=== PATIENT | male | born 1940 | race Hispanic/Latino ===

== ENCOUNTER → 2019-03-10 | Outpatient (CLI) | payer OTHER ==
[2019-03-10 13:26] LABS: CREATININE 1.2 mg/dL (0.5-1.5)
== END | disposition home or self-care (01) ==
LOC: LAB 12:50
PROVIDERS: ATTEND Otolaryngology Plastic Surgery within the Head & Neck
DX: H90.3 Sensorineural hearing loss, bilateral (principal)
CPT/HCPCS: 36415; 82565; 84520

== ENCOUNTER → 2019-03-11 | Outpatient (CLI) | payer OTHER ==
[~2019-03-11] MED LIST: GADODIAMIDE 10 MMOL/20 ML VIAL IV ONE
== END | disposition home or self-care (01) ==
LOC: RAH 12:51
PROVIDERS: ATTEND Otolaryngology Plastic Surgery within the Head & Neck
DX: G31.89 Other specified degenerative diseases of nervous system (principal); H90.3 Sensorineural hearing loss, bilateral
CPT/HCPCS: 70553 ×2; A9579

== ENCOUNTER 2020-12-04 19:43 | Inpatient (IN) | payer OTHER ==
[~2020-12-04] VITALS: Ht 182.9 cm; Wt 118.0 kg
[2020-12-04] MEDS ORDERED: FENTANYL 2500MCG+NS 250ML 250 ML IV ONE (20:01)
[2020-12-04 20:09] LABS: ABG BASE EXCESS -12.4 mmol/L (-2.0-3.0); ABG HCO3 17.3 mmol/L (21.0-28.0); ABG OXYGEN SATURATION 87.3 % (95.0-99.0); ABG PCO2 54 mmHg (35-48)
[2020-12-04 20:35] LABS: BASOPHILS % (AUTO) 0.3 % (0.0-5.0); HEMATOCRIT 43.5 % (42-54); MEAN CORPUSCULAR HEMOGLOBIN 33.3 pg (27.0-33.0); MEAN CORPUSCULAR HGB CONC 33.1 g/dL (32.0-36.0); MEAN CORPUSCULAR VOLUME 100.7 fL (79-99); MONOCYTES % (AUTO) 5.2 % (3.0-13.0); PLATELET COUNT (AUTO) 195 K/uL (130-400); RED BLOOD CELL COUNT(AUTO) 4.32 MIL/uL (4.50-6.20); RED CELL DISTRIBUTION WIDTH 14.5 % (11.0-15.5)
[2020-12-04] MEDS ORDERED: ZOSYN 3.375GM+NS 50ML 50 ML IV ONE (20:37)
[2020-12-04] MEDS ORDERED: INSULIN HUMULIN R 100 UNIT/ML 3ML ONE (20:37)
[2020-12-04 20:49] LABS: INR 1.12 (0.85-1.15); PROTHROMBIN TIME 12.1 SEC (9.6-11.6)
[2020-12-04 20:51] LABS: PARTIAL THROMBOPLASTIN TIME 33.9 SEC (26.3-35.5)
[2020-12-04 20:53] LABS: APPEARANCE,URINE Cloudy (CLEAR); BILIRUBIN,URINE Negative (NEGATIVE); COLOR,URINE Dark Yellow (YELLOW); GLUCOSE, URINE (UA) 250 mg/dL (NEGATIVE); KETONES,URINE Negative (NEGATIVE); LEUKOCYTE ESTERASE ,URINE Small (NEGATIVE); NITRATE,URINE Negative (NEGATIVE); OCCULT BLOOD,URINE Moderate (NEGATIVE); PH,URINE 6.5 (5.0-8.0); PROTEIN,URINE >=1000 mg/dL (NEGATIVE)
[2020-12-04 20:58] LABS: ABG BASE EXCESS -8.5 mmol/L (-2.0-3.0); ABG HCO3 20.6 mmol/L (21.0-28.0); ABG OXYGEN SATURATION 92.7 % (95.0-99.0); ABG PCO2 57 mmHg (35-48)
[2020-12-04 21:16] LABS: ALBUMIN 3.1 g/dL (3.5-5.0); BILIRUBIN,TOTAL 0.7 mg/dL (0.2-1.0); CREATININE 2.2 mg/dL (0.5-1.5); POTASSIUM 4.1 mmol/L (3.5-5.1); TOTAL PROTEIN, SERUM 8.4 g/dL (6.0-8.3); TROPONIN I 0.05 ng/mL (0.00-0.06)
[2020-12-04 21:34] LABS: BACTERIA,URINE Few /HPF (None Seen); MUCUS,URINE Few LPF (None Seen); SQUAMOUS EPITHELIAL CELL,UR Moderate /HPF (0-2)
[2020-12-04] MEDS ORDERED: DEXTROSE 50%-WATER 50 ML DISP.SYRIN IV PRN (21:45)
[2020-12-04] MEDS ORDERED: GLUCAGON 1MG KIT 1 MG ML IM PRN (21:45)
[2020-12-04] MEDS ORDERED: DEXAMETHASONE SOD PHOSPHATE 4 MG/ML 1ML VIAL IVP SCH (21:45)
[2020-12-04] MEDS ORDERED: ACETAMINOPHEN 650 MG SUPPOSITORY RC ONE (21:59)
[2020-12-04] MEDS ORDERED: NOREPINEPHRIN 4MG/NS 250ML 250 ML IV ONE (21:59)
[2020-12-04] MEDS: AZITHROMYCIN 500MG+NS 250ML 250 ML IV SCH (22:00)
[2020-12-04] MEDS ORDERED: LINEZOLID 600 MG/ISO-OSM 300 ML IV SCH (22:00)
[2020-12-04 22:09] LABS: HEMOGLOBIN A1C 8.5 % (4.0-6.0)
[2020-12-04 22:10] LABS: MAGNESIUM 1.9 mg/dL (1.80-2.40)
[2020-12-04] MEDS ORDERED: NITROGLYCERIN 0.4 MG SL TAB SL PRN (22:15)
[2020-12-04] MEDS ORDERED: ONDANSETRON 4MG INJ IV PRN (22:15)
[2020-12-04] MEDS ORDERED: 0.9%NACL 1000ML 1,000 ML IV SCH (22:15)
[2020-12-04] MEDS ORDERED: 0.9%NACL 1000ML 3,000 ML IV SCH (22:15)
[2020-12-04] MEDS: INSULIN HUMULIN R 100 UNIT/ML 3ML IV SCH (22:15)
[2020-12-04] MEDS ORDERED: POTASSIUM CHLORIDE 10MEQ/100ML 100 ML IV PRN (22:15)
[2020-12-04] MEDS ORDERED: DEXTROSE 5 %-0.45 % NACL 1,000 ML IV PRN (22:15)
[2020-12-04] MEDS ORDERED: ENOXAPARIN SODIUM 1 MG/KG SQ SCH (22:30)
[2020-12-04] MEDS ORDERED: SODIUM BICARB 50MEQ 50ML VIAL IV STA (22:36)
[2020-12-04] MEDS: SODIUM BICARB 8.4% 50ML SYRINGE IVP SCH (22:45)
[2020-12-04] MEDS ORDERED: PHENYLEPHRINE HCL 10 MG in 0.9% NACL 250ML 250 ML IV PRN (23:00)
[2020-12-04] MEDS ORDERED: ASPIRIN 300 MG SUPPOSITORY PR SCH (23:15)
[2020-12-04] MEDS ORDERED: DEXAMETHASONE SOD PHOSPHATE 4 MG/ML 1ML VIAL ONE (23:28)
[2020-12-04] MEDS ORDERED: SODIUM BICARB 50MEQ 50ML VIAL 100 ML ONE (23:29)
[2020-12-04] MEDS ORDERED: PHENYLEPHRINE HCL 10 MG/ML 1ML VIAL IV ONE (23:29)
[2020-12-04] MEDS ORDERED: 0.9% NACL 250ML 250 ML IV ONE (23:30)
[2020-12-05] VITALS (51 sets, daily range): BP systolic 77–137; BP diastolic 41–92
[2020-12-05] MEDS ORDERED: INSULIN HUMULIN R 100 UNIT/ML 3ML SQ SCH
[2020-12-05 01:09] LABS: TROPONIN I 4.29 ng/mL (0.00-0.06)
[2020-12-05] MEDS ORDERED: PHENYLEPHRINE HCL 10 MG/ML 1ML VIAL IV ONE ×7 (01:45→10:03)
[2020-12-05] MEDS ORDERED: ALBUTEROL INHALER 90MCG/INH IH SCH ×2 (01:45→10:00)
[2020-12-05] MEDS ORDERED: 0.9% NACL 250ML 250 ML IV ONE ×2 (01:46→03:23)
[2020-12-05] MEDS ORDERED: INSULIN HUMULIN R 100 UNIT/ML 3ML ONE ×3 (02:18→09:35)
[2020-12-05] MEDS ORDERED: 0.9%NACL 100ML 100 ML IV ONE ×2 (02:19→08:02)
[2020-12-05] MEDS ORDERED: AZITHROMYCIN 500MG+NS 250ML 250 ML IV ONE (02:28)
[2020-12-05] MEDS ORDERED: POTASSIUM CHLORIDE 20MEQ/100ML 100 ML IV ONE (03:37)
[2020-12-05] MEDS ORDERED: ASPIRIN 300 MG SUPPOSITORY PR ONE (03:50)
[2020-12-05] MEDS: ZOSYN 3.375GM+NS 50ML 50 ML IV SCH ×3 (04:00→22:16)
[2020-12-05 05:27] LABS: BASOPHILS % (AUTO) 0.2 % (0.0-5.0); EOSINOPHILS % (AUTO) 0.1 % (0.0-8.0); HEMATOCRIT 39.9 % (42-54); LYMPHOCYTES % (AUTO) 14.4 % (21.0-51.0); MEAN CORPUSCULAR HGB CONC 31.8 g/dL (32.0-36.0); MEAN CORPUSCULAR VOLUME 103.6 fL (79-99); MONOCYTES % (AUTO) 3.1 % (3.0-13.0); NEUTROPHILS % (AUTO) 79.8 % (40.0-77.0); PLATELET COUNT (AUTO) 199 K/uL (130-400); RED BLOOD CELL COUNT(AUTO) 3.85 MIL/uL (4.50-6.20); RED CELL DISTRIBUTION WIDTH 14.6 % (11.0-15.5)
[2020-12-05] MEDS ORDERED: VASOPRESSIN 20 UNITS/ML 1ML VIAL ONE (05:30)
[2020-12-05 05:55] LABS: BILIRUBIN,TOTAL 0.6 mg/dL (0.2-1.0); CREATININE 1.9 mg/dL (0.5-1.5); POTASSIUM 4.8 mmol/L (3.5-5.1); TOTAL PROTEIN, SERUM 5.6 g/dL (6.0-8.3)
[2020-12-05] MEDS: CACL 1GM SYG IVP SCH ×2 (06:00→21:24)
[2020-12-05 06:12] LABS: CRP QUANTITATIVE 324.8 mg/L (0.00-9.0)
[2020-12-05 06:25] LABS: TROPONIN I 4.63 ng/mL (0.00-0.06)
[2020-12-05 06:30] LABS: ABG BASE EXCESS -7.7 mmol/L (-2.0-3.0); ABG HCO3 19.3 mmol/L (21.0-28.0); ABG PCO2 45 mmHg (35-48)
[2020-12-05] MEDS: LINEZOLID 600 MG/ISO-OSM 300 ML IV SCH ×2 (08:00→22:16)
[2020-12-05] MEDS ORDERED: PHARMACY COMMUNICATION**REMDESIVIR MISC SCH (08:15)
[2020-12-05] MEDS ORDERED: REMDESIVIR (EUA) 520 200 MG in 0.9% NACL 250ML 250 ML IV SCH (08:45)
[2020-12-05] MEDS ORDERED: COMPOUND IV REFRIGERATED 1 EACH IVSOLN MISC PRN (08:45)
[2020-12-05] MEDS ORDERED: CALCIUM GLUC 1GM 1 GM in 0.9%NACL 100ML 100 ML IV SCH (08:45)
[2020-12-05] MEDS ORDERED: CALCIUM GLUC 1GM/10ML VIAL IV SCH (08:45)
[2020-12-05] MEDS ORDERED: INSULIN GLARGINE 100 UNITS/ML 10 ML VIAL SQ SCH (08:45)
[2020-12-05] MEDS ORDERED: MAGNESIUM 2GM PREMIX 50ML 50 ML IV SCH (08:45)
[2020-12-05] MEDS ORDERED: ENOXAPARIN SODIUM 100 MG/1 ML SQ SCH (09:00)
[2020-12-05] MEDS: FAMOTIDINE 20MG VIAL IV SCH ×2 (09:00→22:16)
[2020-12-05] MEDS ORDERED: ENOXAPARIN SODIUM 40 MG/0.4 ML SYRINGE SQ SCH (09:00)
[2020-12-05 09:13] LABS: ABG BASE EXCESS -9.6 mmol/L (-2.0-3.0); ABG HCO3 15.5 mmol/L (21.0-28.0); ABG OXYGEN SATURATION 95.4 % (95.0-99.0); ABG PCO2 32 mmHg (35-48)
[2020-12-05] MEDS ORDERED: FUROSEMIDE 20MG VIAL ONE (09:33)
[2020-12-05] MEDS ORDERED: ENOXAPARIN SODIUM 100 MG/1 ML SQ ONE (09:33)
[2020-12-05] MEDS ORDERED: MAGNESIUM 2GM PREMIX 50ML 50 ML IV ONE (09:33)
[2020-12-05] MEDS ORDERED: ZOSYN 3.375GM+NS 50ML 50 ML IV ONE (09:33)
[2020-12-05] MEDS ORDERED: FAMOTIDINE 20MG VIAL IV ONE (09:34)
[2020-12-05] MEDS ORDERED: FENTANYL 2500MCG+NS 250ML 250 ML IV ONE (09:38)
[2020-12-05] MEDS ORDERED: NOREPINEPHRIN 4MG/NS 250ML 250 ML IV SCH (10:53)
[2020-12-05] MEDS: INSULIN HUMULIN R 100 UNIT/ML 3ML SQ SCH ×3 (11:30→22:19)
[2020-12-05] MEDS: ARTIFICAL TEARS SOL 15 ML OU SCH ×3 (12:00→20:00)
[2020-12-05 12:24] LABS: TROPONIN I 2.32 ng/mL (0.00-0.06)
[2020-12-05] MEDS ORDERED: VASOPRESSIN 20 UNITS/NS 100ML IV SCH ×2 (13:00)
[2020-12-05] MEDS ORDERED: [UNRECOGNIZED DRUG - OTHER] IV ONE (13:04)
[2020-12-05] MEDS ORDERED: ALBUTEROL INHALER 90MCG/INH IH ONE (14:18)
[2020-12-05] MEDS ORDERED: THIAMINE HCL 100 MG/ML 2ML VIAL IV SCH (14:56)
[2020-12-05] MEDS ORDERED: PHARMACY COMMUNICATION MISC SCH ×3 (17:45→19:15)
[2020-12-05] MEDS ORDERED: NOREPINEPHRIN 8MG/250ML NS PMX 250 ML IV SCH (18:00)
[2020-12-05 18:30] LABS: TROPONIN I 8.96 ng/mL (0.00-0.06)
[2020-12-05] MEDS ORDERED: ASPIRIN 81MG CHEW TAB NG SCH (19:15)
[2020-12-05] MEDS ORDERED: HYDROCORTISONE SOD SUCCINATE 100 MG/2 ML VIAL IV SCH (21:00)
[2020-12-05] MEDS: INSULIN HUMULIN R 100 UNIT/ML 3ML IV SCH (21:02)
[2020-12-05] MEDS: SODIUM BICARB 8.4% 50ML SYRINGE IVP SCH (21:05)
[2020-12-05 21:44] LABS: TROPONIN I 13.81 ng/mL (0.00-0.06)
[2020-12-05] MEDS: AZITHROMYCIN 500MG+NS 250ML 250 ML IV SCH (22:17)
[2020-12-05] MEDS: DEXAMETHASONE SOD PHOSPHATE 4 MG/ML 1ML VIAL IVP SCH (22:23)
[2020-12-05 22:58] LABS: INR 1.53 (0.85-1.15)
[2020-12-05 22:59] LABS: PARTIAL THROMBOPLASTIN TIME 37.3 SEC (26.3-35.5)
[2020-12-05] MEDS: HEPARIN 25,000 UNITS/250ML D5W 250 ML IV PRN (23:08)
[2020-12-06] VITALS (97 sets, daily range): BP systolic 69–143; BP diastolic 44–93
[2020-12-06] MEDS ORDERED: NOREPINEPHRIN 8MG/250ML NS PMX 250 ML IV ONE (00:01)
[2020-12-06] MEDS: ARTIFICAL TEARS SOL 15 ML OU SCH ×6 (00:18→20:59)
[2020-12-06] MEDS ORDERED: PHENYLEPHRINE HCL 10 MG/ML 1ML VIAL IV ONE ×4 (01:33→05:11)
[2020-12-06] MEDS ORDERED: 0.9% NACL 250ML 250 ML IV ONE ×3 (01:35→05:12)
[2020-12-06] MEDS: ZOSYN 3.375GM+NS 50ML 50 ML IV SCH (04:58)
[2020-12-06] MEDS: REMDESIVIR LABS MISC SCH ×2 (07:36→19:55)
[2020-12-06] MEDS: INSULIN HUMULIN R 100 UNIT/ML 3ML SQ SCH ×4 (07:38→21:37)
[2020-12-06 07:41] LABS: BASOPHILS % (AUTO) 0.4 % (0.0-5.0); HEMATOCRIT 48.6 % (42-54); LYMPHOCYTES % (AUTO) 5.2 % (21.0-51.0); MEAN CORPUSCULAR HEMOGLOBIN 33.2 pg (27.0-33.0); MEAN CORPUSCULAR HGB CONC 31.9 g/dL (32.0-36.0); MEAN CORPUSCULAR VOLUME 104.1 fL (79-99); MONOCYTES % (AUTO) 3.7 % (3.0-13.0); NEUTROPHILS % (AUTO) 86.2 % (40.0-77.0); NUCLEATED RED BLOOD CELLS 0.4 % (0.0-0.19); PLATELET COUNT (AUTO) 271 K/uL (130-400); RED BLOOD CELL COUNT(AUTO) 4.67 MIL/uL (4.50-6.20); RED CELL DISTRIBUTION WIDTH 15.5 % (11.0-15.5); WHITE BLOOD COUNT (AUTO) 18.9 K/uL (4.8-10.8)
[2020-12-06 07:52] LABS: ABG BASE EXCESS -16.5 mmol/L (-2.0-3.0); ABG HCO3 12.5 mmol/L (21.0-28.0); ABG PCO2 40 mmHg (35-48)
[2020-12-06 08:10] LABS: B-TYPE NATRIURETIC PEPTIDE 4580 pg/mL (0-100)
[2020-12-06 08:36] LABS: ALBUMIN 2.3 g/dL (3.5-5.0); BILIRUBIN,TOTAL 1.4 mg/dL (0.2-1.0); CREATININE 3.6 mg/dL (0.5-1.5); MAGNESIUM 2.3 mg/dL (1.80-2.40); TOTAL PROTEIN, SERUM 6.7 g/dL (6.0-8.3)
[2020-12-06] MEDS ORDERED: ASPIRIN 81MG CHEW TAB NG SCH (09:00)
[2020-12-06] MEDS ORDERED: DEXMEDETOMIDINE HCL 400 MCG in 0.9%NACL 100ML 100 ML IV SCH (09:15)
[2020-12-06] MEDS ORDERED: PHARMACY COMMUNICATION MISC STA ×2 (09:16→11:14)
[2020-12-06] MEDS ORDERED: INSULIN GLARGINE 100 UNITS/ML 10 ML VIAL SQ SCH (09:30)
[2020-12-06] MEDS: DEXAMETHASONE SOD PHOSPHATE 4 MG/ML 1ML VIAL IVP SCH ×2 (10:17→21:35)
[2020-12-06] MEDS: SODIUM BICARB 50MEQ 50ML VIAL 150 MEQ in DEXTROSE 5%-WATER 1,000 ML IV SCH ×2 (10:28→22:59)
[2020-12-06] MEDS ORDERED: FENTANYL CITRATE PF 0.05 MG/ML 1,000 MCG in 0.9%NACL 100ML 100 ML IVPB STA (10:59)
[2020-12-06] MEDS ORDERED: PROPOFOL 1000 MG/100 ML IV STA (11:01)
[2020-12-06] MEDS ORDERED: RENAL DOSE IV SCH (11:15)
[2020-12-06] MEDS ORDERED: PROPOFOL 1000 MG/100 ML 100 ML IV PRN (11:15)
[2020-12-06] MEDS ORDERED: PHARMACY COMMUNICATION MISC SCH ×4 (11:15→21:15)
[2020-12-06] MEDS ORDERED: CISATRACURIUM BESYLATE IV SCH (12:00)
[2020-12-06] MEDS ORDERED: NACL 0.9% IV SCH (12:00)
[2020-12-06] MEDS ORDERED: CISATRACURIUM BESYLATE 2 MG/ML 10ML VIAL IVP SCH (12:00)
[2020-12-06] MEDS: CEFEPIME HCL 2 GM VIAL IVP SCH ×2 (12:24→22:38)
[2020-12-06] MEDS: VECURONIUM 10MG/10ML IV SCH ×2 (12:24→18:42)
[2020-12-06] MEDS: LANSOPRAZOLE 15 MG SOLU TAB PEG SCH (12:35)
[2020-12-06] MEDS: LACTULOSE 20 GM/30 ML UDCUP GT SCH ×2 (12:35→21:00)
[2020-12-06] MEDS: BUMETANIDE 0.25MG/ML 40ML IV SCH (12:43)
[2020-12-06] MEDS ORDERED: REMDESIVIR (EUA) 520 100 MG in 0.9% NACL 250ML 250 ML IV SCH (13:00)
[2020-12-06] MEDS: FENTANYL 2500MCG+NS 250ML 250 ML IV SCH (13:08)
[2020-12-06 13:27] LABS: ABG HCO3 13.3 mmol/L (21.0-28.0); ABG OXYGEN SATURATION 93.3 % (95.0-99.0); ABG PCO2 40 mmHg (35-48)
[2020-12-06] MEDS: HEPARIN 25,000 UNITS/250ML D5W 250 ML IV PRN (14:25)
[2020-12-06] MEDS ORDERED: NOREPINEPHRIN 4MG/NS 250ML 250 ML IV ONE (16:29)
[2020-12-06] MEDS: NOREPINEPHRIN 4MG/NS 250ML 250 ML IV SCH (16:34)
[2020-12-06] MEDS: VASOPRESSIN 20 UNITS in 0.9%NACL 100ML 100 ML IV SCH (17:22)
[2020-12-06] MEDS ORDERED: CALCIUM GLUC 1GM/10ML VIAL IV SCH (17:45)
[2020-12-06] MEDS ORDERED: KAYEXALATE 15GM/60ML PO SCH (17:45)
[2020-12-06] MEDS ORDERED: INSULIN HUMULIN R 100 UNIT/ML 3ML SQ SCH (17:45)
[2020-12-06] MEDS: DEXTROSE 50%-WATER 50 ML DISP.SYRIN IV SCH (18:40)
[2020-12-06] MEDS: CACL 1GM SYG IVP SCH (19:55)
[2020-12-06] MEDS: INSULIN HUMULIN R 100 UNIT/ML 3ML IV SCH (19:55)
[2020-12-06] MEDS ORDERED: ENOXAPARIN SODIUM 60 MG/0.6 ML SQ SCH (21:00)
[2020-12-06] MEDS: INSULIN GLARGINE 100 UNITS/ML 10 ML VIAL SQ SCH (21:42)
[2020-12-07] VITALS (107 sets, daily range): BP systolic 71–155; BP diastolic 39–62
[2020-12-07] MEDS: VECURONIUM 10MG/10ML IV SCH ×2 (00:29→05:17)
[2020-12-07] MEDS: ARTIFICAL TEARS SOL 15 ML OU SCH ×7 (00:29→23:04)
[2020-12-07] MEDS: LACTULOSE 20 GM/30 ML UDCUP GT SCH ×3 (04:53→20:21)
[2020-12-07] MEDS: HEPARIN 25,000 UNITS/250ML D5W 250 ML IV PRN (04:55)
[2020-12-07] MEDS: FENTANYL 2500MCG+NS 250ML 250 ML IV SCH ×2 (05:18→23:02)
[2020-12-07 06:42] LABS: ABG BASE EXCESS -9.9 mmol/L (-2.0-3.0); ABG HCO3 16.3 mmol/L (21.0-28.0); ABG PCO2 37 mmHg (35-48)
[2020-12-07 06:51] LABS: BASOPHILS % (AUTO) 0.2 % (0.0-5.0); HEMATOCRIT 43.6 % (42-54); MEAN CORPUSCULAR HEMOGLOBIN 32.9 pg (27.0-33.0); MEAN CORPUSCULAR HGB CONC 32.6 g/dL (32.0-36.0); MEAN CORPUSCULAR VOLUME 101.2 fL (79-99); MONOCYTES % (AUTO) 2.1 % (3.0-13.0); NEUTROPHILS % (AUTO) 83.3 % (40.0-77.0); NUCLEATED RED BLOOD CELLS 0.7 % (0.0-0.19); PLATELET COUNT (AUTO) 160 K/uL (130-400); RED BLOOD CELL COUNT(AUTO) 4.31 MIL/uL (4.50-6.20); RED CELL DISTRIBUTION WIDTH 15.4 % (11.0-15.5); WHITE BLOOD COUNT (AUTO) 8.9 K/uL (4.8-10.8)
[2020-12-07] MEDS: INSULIN HUMULIN R 100 UNIT/ML 3ML SQ SCH ×5 (07:11→21:51)
[2020-12-07 07:12] LABS: ALBUMIN 1.8 g/dL (3.5-5.0); BILIRUBIN,TOTAL 1.6 mg/dL (0.2-1.0); CREATININE 6.7 mg/dL (0.5-1.5); TOTAL PROTEIN, SERUM 5.6 g/dL (6.0-8.3)
[2020-12-07 07:16] LABS: POTASSIUM 6.7 mmol/L (3.5-5.1)
[2020-12-07 07:18] LABS: B-TYPE NATRIURETIC PEPTIDE > 5000 pg/mL (0-100)
[2020-12-07] MEDS ORDERED: ALLO300T2 PO (07:26)
[2020-12-07] MEDS ORDERED: LATA2.5D14 OU (07:26)
[2020-12-07] MEDS ORDERED: LOSA25TA41 PO (07:26)
[2020-12-07] MEDS ORDERED: CARV3.12 PO (07:26)
[2020-12-07] MEDS ORDERED: METF-446 PO (07:26)
[2020-12-07] MEDS ORDERED: PRAV10TA39 PO (07:26)
[2020-12-07] MEDS: BUMETANIDE 0.25MG/ML 40ML IV SCH (08:10)
[2020-12-07] MEDS ORDERED: DEXTROSE 50%-WATER 25 GM/50 ML VIAL IV STA ×2 (08:36→15:50)
[2020-12-07] MEDS ORDERED: SODIUM BICARB 8.4% 50ML SYRINGE IVP STA (08:36)
[2020-12-07] MEDS ORDERED: CACL 1GM SYG IVP SCH (08:44)
[2020-12-07] MEDS ORDERED: INSULIN HUMULIN R 100 UNIT/ML 3ML IJ ONE (08:45)
[2020-12-07 08:54] LABS: CRP QUANTITATIVE 256.5 mg/L (0.00-9.0)
[2020-12-07] MEDS ORDERED: ASPIRIN 81MG CHEW TAB GT SCH (09:00)
[2020-12-07] MEDS: DEXAMETHASONE SOD PHOSPHATE 4 MG/ML 1ML VIAL IVP SCH ×2 (09:57→20:21)
[2020-12-07] MEDS: LANSOPRAZOLE 15 MG SOLU TAB PEG SCH (09:57)
[2020-12-07] MEDS ORDERED: SODIUM BICARB 50MEQ 50ML VIAL 50 ML ONE ×2 (10:05→16:30)
[2020-12-07] MEDS: CEFEPIME HCL 2 GM VIAL IVP SCH ×2 (10:07→22:22)
[2020-12-07] MEDS ORDERED: VECURONIUM 10MG/10ML IV PRN (12:00)
[2020-12-07] MEDS ORDERED: LACTULOSE 20 GM/30 ML UDCUP ONE (12:34)
[2020-12-07] MEDS: SODIUM BICARB 50MEQ 50ML VIAL 150 MEQ in DEXTROSE 5%-WATER 1,000 ML IV SCH (13:31)
[2020-12-07] MEDS: BUMETANIDE 2.5MG/10ML VIAL 80 ML IV SCH ×2 (13:32→16:06)
[2020-12-07] MEDS: NOREPINEPHRIN 4MG/NS 250ML 250 ML IV SCH ×2 (13:35→22:22)
[2020-12-07] MEDS ORDERED: CALCIUM GLUC 1GM/10ML VIAL IV STA (15:50)
[2020-12-07] MEDS ORDERED: INSULIN HUMULIN R 100 UNIT/ML 3ML IV STA (15:50)
[2020-12-07] MEDS ORDERED: SODIUM BICARB 50MEQ 50ML VIAL IV STA (15:50)
[2020-12-07] MEDS ORDERED: KAYEXALATE 15GM/60ML RC ONE (16:00)
[2020-12-07] MEDS: INSULIN GLARGINE 100 UNITS/ML 10 ML VIAL SQ SCH (16:36)
[2020-12-07] MEDS: DEXTROSE 50%-WATER 50 ML DISP.SYRIN IV SCH (16:41)
[2020-12-07] MEDS ORDERED: CALCIUM GLUC 1GM 2 GM in 0.9%NACL 100ML 100 ML IV SCH (16:45)
[2020-12-07] MEDS: VASOPRESSIN 20 UNITS in 0.9%NACL 100ML 100 ML IV SCH (18:18)
[2020-12-07] MEDS: INSULIN HUMULIN R 100 UNIT/ML 3ML IV SCH (19:31)
[2020-12-07] MEDS: CACL 1GM SYG IVP SCH (19:32)
[2020-12-07] MEDS ORDERED: GLUCAGON 1MG KIT 1 MG ML IM PRN (20:30)
[2020-12-07] MEDS ORDERED: DEXTROSE 50%-WATER 50 ML DISP.SYRIN IV PRN (20:30)
[2020-12-07] MEDS ORDERED: ATORVASTATIN 20 MG TABLET GT SCH (21:00)
[2020-12-08] VITALS (32 sets, daily range): BP systolic 54–210; BP diastolic 39–196
[2020-12-08] MEDS: NOREPINEPHRIN 4MG/NS 250ML 250 ML IV SCH (02:46)
[2020-12-08] MEDS ORDERED: NOREPINEPHRINE BITARTRATE 1 MG/1 ML ML IV ONE (03:11)
[2020-12-08] MEDS ORDERED: 0.9% NACL 250ML 250 ML IV ONE (03:12)
[2020-12-08] MEDS ORDERED: PHARMACY COMMUNICATION MISC SCH (03:15)
[2020-12-08] MEDS: ARTIFICAL TEARS SOL 15 ML OU SCH (04:36)
[2020-12-08] MEDS: SODIUM BICARB 50MEQ 50ML VIAL 150 MEQ in DEXTROSE 5%-WATER 1,000 ML IV SCH (04:36)
[2020-12-08] MEDS: LACTULOSE 20 GM/30 ML UDCUP GT SCH (04:37)
[2020-12-08 06:12] LABS: BASOPHILS % (AUTO) 0.3 % (0.0-5.0); HEMATOCRIT 49.2 % (42-54); LYMPHOCYTES % (AUTO) 7.1 % (21.0-51.0); MEAN CORPUSCULAR HEMOGLOBIN 32.7 pg (27.0-33.0); MEAN CORPUSCULAR HGB CONC 32.5 g/dL (32.0-36.0); MEAN CORPUSCULAR VOLUME 100.4 fL (79-99); MONOCYTES % (AUTO) 2.5 % (3.0-13.0); NUCLEATED RED BLOOD CELLS 0.7 % (0.0-0.19); PLATELET COUNT (AUTO) 155 K/uL (130-400); RED CELL DISTRIBUTION WIDTH 16.4 % (11.0-15.5); WHITE BLOOD COUNT (AUTO) 14.6 K/uL (4.8-10.8)
[2020-12-08 06:21] LABS: ABG BASE EXCESS -10.8 mmol/L (-2.0-3.0); ABG HCO3 16.8 mmol/L (21.0-28.0); ABG PCO2 43 mmHg (35-48)
[2020-12-08] MEDS: INSULIN HUMULIN R 100 UNIT/ML 3ML SQ SCH ×2 (06:31→06:38)
[2020-12-08 06:37] LABS: ALBUMIN 1.5 g/dL (3.5-5.0); BILIRUBIN,TOTAL 3.6 mg/dL (0.2-1.0); MAGNESIUM 2.5 mg/dL (1.80-2.40); TOTAL PROTEIN, SERUM 5.1 g/dL (6.0-8.3)
[2020-12-08 06:46] LABS: CREATININE 9.2 mg/dL (0.5-1.5); POTASSIUM 7.4 mmol/L (3.5-5.1)
[2020-12-08] MEDS ORDERED: NOREPINEPHRINE BITARTRATE 32 MG in 0.9% NACL 250ML 250 ML IV SCH (07:45)
== END 2020-12-08 07:53 | disposition expired | DRG 871 ==
LOC: EDH 19:43 → EDHIP 21:43 → 2BH 12-05 14:44
PROVIDERS: ADMIT Hospitalist; ATTEND Hospitalist
PROC: XW033E5 Introduction of Remdesivir Anti-infective into Peripheral Vein, Percutaneous Approach, New Technology Group 5 (ICD-10-PCS; principal; 2020-12-05)
PROC: 5A1945Z Respiratory Ventilation, 24-96 Consecutive Hours (ICD-10-PCS; 2020-12-05)
PROC: 0BH17EZ Insertion of Endotracheal Airway into Trachea, Via Natural or Artificial Opening (ICD-10-PCS; 2020-12-05)
PROC: 03HY32Z Insertion of Monitoring Device into Upper Artery, Percutaneous Approach (ICD-10-PCS; 2020-12-05)
PROC: 02HV33Z Insertion of Infusion Device into Superior Vena Cava, Percutaneous Approach (ICD-10-PCS; 2020-12-05)
PROC: B548ZZA Ultrasonography of Superior Vena Cava, Guidance (ICD-10-PCS; 2020-12-05)
DX: A41.89 Other specified sepsis (principal); R65.21 Severe sepsis with septic shock; U07.1 COVID-19; I21.4 Non-ST elevation (NSTEMI) myocardial infarction; G93.41 Metabolic encephalopathy; J12.82 Pneumonia due to coronavirus disease 2019; I50.21 Acute systolic (congestive) heart failure; K72.00 Acute and subacute hepatic failure without coma; N17.0 Acute kidney failure with tubular necrosis; J80 Acute respiratory distress syndrome; E87.2 Acidosis; E87.0 Hyperosmolality and hypernatremia; E87.4 Mixed disorder of acid-base balance; I13.0 Hypertensive heart and chronic kidney disease with heart failure and stage 1 through stage 4 chronic kidney disease, or unspecified chronic kidney disease; N30.00 Acute cystitis without hematuria; E87.1 Hypo-osmolality and hyponatremia; E11.65 Type 2 diabetes mellitus with hyperglycemia; E87.6 Hypokalemia; D72.810 Lymphocytopenia; E83.42 Hypomagnesemia; Z66 Do not resuscitate; E66.9 Obesity, unspecified; L80 Vitiligo; E86.0 Dehydration; B97.89 Other viral agents as the cause of diseases classified elsewhere; D64.9 Anemia, unspecified; E11.22 Type 2 diabetes mellitus with diabetic chronic kidney disease; E87.5 Hyperkalemia; E88.09 Other disorders of plasma-protein metabolism, not elsewhere classified; I45.10 Unspecified right bundle-branch block; N18.9 Chronic kidney disease, unspecified; R57.0 Cardiogenic shock; T38.0X5A Adverse effect of glucocorticoids and synthetic analogues, initial encounter; Z68.35 Body mass index [BMI] 35.0-35.9, adult; Z79.4 Long term (current) use of insulin; Y92.89 Other specified places as the place of occurrence of the external cause; Z88.6 Allergy status to analgesic agent; Z83.3 Family history of diabetes mellitus
CPT/HCPCS: 31500; 36415; 36600; 71045; 76770; 80053; 80061; 81001; 82010; 82140; 82330; 82435; 82550; 82728; 82803; 82947; 82948; 83036; 83605; 83615; 83735; 83874; 83880; 84100; 84132; 84145; 84295; 84478; 84484; 85018; 85025; 85378; 85610; 85730; 86140; 86900; 86901; 87040; 87077; 87088; 87186; 87426; 87804; 93005; 93306; 93970; 94002; 94003; 94660; G0378; J0456; J0610; J0692; J1100; J1644; J1650; J1815; J1940; J2020; J2370; J2543; J3010; J3411; J3475; J3480; J3490; J7050; J7070